=== PATIENT | female | born 1990 | race Caucasian/White ===

== ENCOUNTER 2023-03-01 15:09 | Outpatient (CLI) | payer BC, MEDICARE, MEDICAID ==
[2023-03-01 15:54] LABS: Hemoglobin 13.6 g/dL (12.0-15.5); Mean Corpuscular HGB CONC 33.6 g/dL (32.0-36.0); Mean Corpuscular Hemoglobin 30.8 pg (27.0-33.0); Mean Corpuscular Volume 91.8 fl (81.6-98.3); Mean Platelet Volume 9.4 fl (7.4-10.4); Platelet Count 267 10x3/uL (150-450); RBC Distribution Width 12.4 % (11.5-14.5); Red Blood Cell (RBC) Count 4.41 10x6/uL (3.90-5.03); White Blood Cell (WBC) Count 6.9 10x3/uL (3.5-10.5)
[2023-03-01 15:56] LABS: BHCG - Serum Negative (NEGATIVE); Pregs Control Background? CLEAR/WHITE (CLR/WHITE); Pregs Control Bar Appear? YES (CONTROL BAR)
== END 2023-03-01 15:10 | disposition home or self-care (01) ==
LOC: CSHLAB 15:09
PROVIDERS: ATTEND Obstetrics & Gynecology
DX: Z01.812 Encounter for preprocedural laboratory examination (principal); N83.202 Unspecified ovarian cyst, left side
CPT/HCPCS: 84703; 85027; 86850; 86900; 86901

== ENCOUNTER 2023-03-07 09:27 | Day surgery (SDC) | payer BC, MEDICARE, MEDICAID ==
[2023-03-01 15:54] LABS: Hemoglobin 13.6 g/dL (12.0-15.5); Mean Corpuscular HGB CONC 33.6 g/dL (32.0-36.0); Mean Corpuscular Hemoglobin 30.8 pg (27.0-33.0); Mean Corpuscular Volume 91.8 fl (81.6-98.3); Mean Platelet Volume 9.4 fl (7.4-10.4); Platelet Count 267 10x3/uL (150-450); RBC Distribution Width 12.4 % (11.5-14.5); Red Blood Cell (RBC) Count 4.41 10x6/uL (3.90-5.03); White Blood Cell (WBC) Count 6.9 10x3/uL (3.5-10.5)
[2023-03-01 15:56] LABS: BHCG - Serum Negative (NEGATIVE); Pregs Control Background? CLEAR/WHITE (CLR/WHITE); Pregs Control Bar Appear? YES (CONTROL BAR)
[2023-03-05 16:12] VITALS: BMI 25.4
[2023-03-07] MEDS ORDERED: Midazolam HCl 2 mg/2 ml Vial ONE ×2 (10:36→10:58)
[2023-03-07] MEDS ORDERED: PROPOFOL 20 ML ONE (10:36)
[2023-03-07] MEDS ORDERED: Ondansetron PF 4 MG/2 ML Vial ONE (10:37)
[2023-03-07] MEDS ORDERED: Dexamethasone 4 mg/ml Vial ONE (10:37)
[2023-03-07] MEDS ORDERED: Glycopyrrolate 0.2 MG/ML 5 ML SYRINGE ONE (10:37)
[2023-03-07] MEDS ORDERED: Lidocaine 1% PF 5 ML VIAL ONE (10:37)
[2023-03-07] MEDS ORDERED: Rocuronium Bromide 10 MG/ML (10ML VIAL) ONE (10:37)
[2023-03-07] MEDS ORDERED: Ketorolac Tromethamine 30 MG/ML VIAL ONE (10:37)
[2023-03-07] MEDS ORDERED: Famotidine/PF 20 mg/2ml Vial ONE (10:43)
[2023-03-07] MEDS ORDERED: Fentanyl 100 MCG/2 ML VIAL ONE ×2 (11:31→12:34)
[2023-03-07] MEDS ORDERED: Bupivacaine HCl 0.5%/Epinephrine 1:200,000/PF 30 ml Vial ONE (11:36)
[2023-03-07] MEDS ORDERED: CEFAZOLIN 2 GM VIAL ONE (11:52)
[2023-03-07] MEDS ORDERED: HYDROcodone/Acetaminophen 5/325 mg Tablet ONE (14:29)
== END 2023-03-07 15:05 | disposition home or self-care (01) ==
LOC: CSHSDC 09:27
PROVIDERS: ATTEND Obstetrics & Gynecology
PROC: 0UT14ZZ Resection of Left Ovary, Percutaneous Endoscopic Approach (ICD-10-PCS; principal; 2023-03-07)
PROC: 0UB64ZZ Excision of Left Fallopian Tube, Percutaneous Endoscopic Approach (ICD-10-PCS; principal; 2023-03-07)
DX: N83.12 Corpus luteum cyst of left ovary (principal); L72.0 Epidermal cyst; N83.02 Follicular cyst of left ovary; Z90.710 Acquired absence of both cervix and uterus; N73.6 Female pelvic peritoneal adhesions (postinfective); Z90.721 Acquired absence of ovaries, unilateral
CPT/HCPCS: 84703; 85027; 86850; 86900; 86901; 88305; C1889; J1100; J1885; J2250; J2405; J2704; J3010; S0028